=== PATIENT | female | born 1980 | race Two or more races ===

== ENCOUNTER 2017-01-28 21:22 | Emergency (ER) | payer OTHER ==
[~2017-01-28] VITALS: Ht 157.5 cm; Wt 95.7 kg
[2017-01-28 21:45] VITALS: BP 147/76
[2017-01-28 21:56] LABS: BILIRUBIN,URINE NEGATIVE (NEG); GLUCOSE,URINE NEGATIVE (NEG); NITRITE,URINE NEGATIVE (NEG); PH,URINE 5.5; PROTEIN,URINE NEGATIVE (NEG-TRACE); UROBILINOGEN,URINE 0.2 mg/dL (0.2 mg/dL)
[2017-01-28 22:06] LABS: BACTERIA,URINE 0 /HPF (0-FEW); RBC,URINE OCC /HPF (0-2); SQUAMOUS EPITHELIAL CELL,UR MOD /LPF; WBC,URINE OCC /HPF (0-4)
--- NOTE | 2017-01-28 22:17 | PHYS DOC ---
Past Medical History Past Medical History: No Pertinent History Past Surgical History: No Surgical History Alcohol Use: None Drug Use: Methamphetamine Social History Narrative: PT REPORTS BEING CLEAN FOR 2 YEARS Adult General Chief Complaint Chief Complaint: VAGINAL PROBLEM HPI HPI Patient is a 36 year old female presents to the emergency department stating that she's had a few days of itching and irritation around the vaginal area. She denies any vaginal discharge. She denies any urinary frequency urgency or pain with urination. Patient does states that she is 11 weeks . Review of Systems Review of Systems Constitutional: Denies fever or chills [] Eyes: Denies change in visual acuity, redness, or eye pain [] HENT: Denies nasal congestion or sore throat [] Respiratory: Denies cough or shortness of breath [] Cardiovascular: No additional information not addressed in HPI [] GI: Denies abdominal pain, nausea, vomiting, bloody stools or diarrhea [] : Denies dysuria or hematuria. Complaint of itching and irritation of the vaginal area. Musculoskeletal: Denies back pain or joint pain [] Integument: Denies rash or skin lesions [] Neurologic: Denies headache, focal weakness or sensory changes [] Endocrine: Denies polyuria or polydipsia [] Allergies Allergies Allergies Coded Allergies Type Severity Reaction Last Updated Verified No Known Drug Allergies 01/28/17 No Physical Exam Physical Exam Constitutional: Well developed, well nourished, no acute distress, non-toxic appearance. [] HENT: Normocephalic, atraumatic, bilateral external ears normal, oropharynx moist, no oral exudates, nose normal. [] Eyes: PERRLA, EOMI, conjunctiva normal, no discharge. [] Neck: Normal range of motion, no tenderness, supple, no stridor. [] Cardiovascular: [place] warm and dry Lungs & Thorax: No respiratory distress Skin: Warm, dry, no erythema, no rash. Skin in the perineal area appears to be red with tenderness and raised areas noted. No pustulous no drainage or discharge noted. Back: No tenderness Extremities: No tenderness, no cyanosis, no clubbing, ROM intact, no edema. [] Neurologic: Alert and oriented X 3, normal motor function, normal sensory function, no focal deficits noted. [] Psychologic: Affect normal, judgement normal, mood normal. [ Current Patient Data Vital Signs Vital Signs Date Time Temp Pulse Resp B/P (MAP) Pulse Ox O2 Delivery O2 Flow Rate FiO2 01/28/17 21:45 98.2 72 16 97 Room Air 98.2 Lab Values Laboratory Tests Test 01/28/17 21:01 01/28/17 21:35 POC Urine HCG, Qualitative Hcg positive (Negative) Urine Collection Type Unknown Urine Color Yellow Urine Clarity Clear Urine pH 5.5 Urine Specific [place] >=1.030 Urine Protein Negative mg/dL (NEG-TRACE) Urine Glucose (UA) Negative mg/dL (NEG) Urine Ketones (Stick) Negative mg/dL (NEG) Urine Blood Negative (NEG) Urine Nitrite Negative (NEG) Urine Bilirubin Negative (NEG) Urine Urobilinogen Dipstick 0.2 mg/dL (0.2 mg/dL) Urine Leukocyte Esterase Negative (NEG) Urine RBC Occ /HPF (0-2) Urine WBC Occ /HPF (0-4) Urine Squamous Epithelial Cells Mod /LPF Urine Bacteria 0 /HPF (0-FEW) Urine Mucus Marked /LPF EKG EKG [] Radiology/Procedures Radiology/Procedures [] Course & Med Decision Making Course & Med Decision Making Pertinent Labs and Imaging studies reviewed. (See chart for details) Urinalysis was negative for a UTI. Patient will be treated for a yeast infection will be given one dose of Diflucan here in the emergency department. Patient will be discharged home in stable condition with recommendations to keep the perineal area clean and dry. Patient was also instructed to follow-up the primary care physician in the next 3-5 days. Return to the emergency department signs and symptoms of been provided. Patient agrees with discharge instructions treatment regimens and follow-up recommendations. [] Dragon Disclaimer Dragon Disclaimer This electronic medical record was generated, in whole or in part, using a voice recognition dictation system. Departure Departure Impression: Primary Impression: Luana infection Disposition: HOME, SELF-CARE Condition: STABLE Referrals: NO PCP (PCP) Patient Instructions: Yeast Infection of the Skin, [id number] Additional Instructions: You have been provided with Diflucan here in the emergency department for a yeast infection. Keep the perineal area clean and dry. Follow-up with your [facility] in the next 3-5 days. Return back to emergency department sent symptoms become worse. JOHN PAUL [employer] INFORMATION CLERK Jan 28, 2017 22:17
[2017-01-28] MEDS ORDERED: FLUCONAZOLE 100 MG TABLET. PO ONE (23:00)
== END 2017-01-28 22:28 | disposition home or self-care (01) ==
LOC: ER 21:22
DX: O98.811 Other maternal infectious and parasitic diseases complicating pregnancy, first trimester (principal); B37.9 Candidiasis, unspecified; O99.321 Drug use complicating pregnancy, first trimester; F15.10 Other stimulant abuse, uncomplicated; Z3A.11 11 weeks gestation of pregnancy
CPT/HCPCS: 81001; 81025; 99283

== ENCOUNTER 2017-08-23 12:56 | Emergency (ER) | payer OTHER | END 2017-08-23 13:43 | disposition home or self-care (01) | LOC: ER 12:56 | DX: K64.4 Residual hemorrhoidal skin tags (principal); F15.10 Other stimulant abuse, uncomplicated | CPT/HCPCS: 99283 ==

== ENCOUNTER 2017-09-04 08:06 | Day surgery (SDC) | payer OTHER ==
[~2017-09-04 08:06] MED LIST: HYDROmorphone 2 MG/ML VIAL IV; LIDOCAINE 1% PF 2 ML VIAL. ID; MORPHINE SULFATE 2 MG/ML DISP.SYRIN. IV; ONDANSETRON PF 4 MG/2 ML VIAL. IV; PROCHLORPERAZINE 10 MG/2 ML VIAL. IV; fentaNYL PF VIAL 100 MCG/2 ML VIAL IV
[2017-09-04] MEDS: IV RINGERS,LACTATED 1000ML 1,000 ML IV ×2 (08:43)
[2017-09-04 08:44] LABS: NEG OBC UR NEG; POS OBC UR POS; U PREG PATIENT NEGATIVE (NEG)
[2017-09-04] MEDS ORDERED: LIDOCAINE 2% PF Vial for OR 5 ML VIAL. ×2 (09:23)
[2017-09-04] MEDS ORDERED: DEXAMETHASONE SOD PHOS 20 MG/5 ML VIAL. ×2 (09:23)
[2017-09-04] MEDS ORDERED: PROPOFOL 20 ML IV ×2 (09:23)
[2017-09-04] MEDS ORDERED: ONDANSETRON PF 4 MG/2 ML VIAL. ×2 (09:23)
[2017-09-04] MEDS ORDERED: ROCURONIUM 50 MG/5 ML VIAL. ×2 (09:23)
[2017-09-04] MEDS ORDERED: MIDAZOLAM HCL/PF 2 MG/2 ML VIAL. ×2 (09:24)
[2017-09-04] MEDS ORDERED: fentaNYL PF VIAL 100 MCG/2 ML VIAL ×4 (09:24→09:48)
[2017-09-04] MEDS: CITRIC ACID/SODIUM CITRATE 30 ML SOLUTION. PO ×2 (09:26)
[2017-09-04] MEDS: METOCLOPRAMIDE HCL 10 MG/2 ML VIAL. IV ×2 (09:27)
[2017-09-04] MEDS: BUPIVACAINE-EPI 0.25%-1:200000 50 ML VIAL. ×2 (11:21)
[2017-09-04] MEDS ORDERED: GLYCOPYRROLATE 1 MG/5 ML VIAL. ×2 (11:25)
[2017-09-04] MEDS ORDERED: BACITRACIN/POLYMYXIN B OPHTH OINTMENT 3.5GM TUBE. ×2 (11:25)
[2017-09-04] MEDS ORDERED: NEOSTIGMINE METHYLSULFATE 5 MG/5 ML SYRINGE. ×2 (11:25)
[2017-09-04] MEDS ORDERED: BACITRACIN TOPICAL OINT 14GM TUBE. TP ×2 (11:26)
[2017-09-04] MEDS ORDERED: SEVOFLURANE 31 TO 60 MINUTES. IH ×2 (11:27)
[2017-09-04] MEDS: BACITRACIN TOPICAL OINT 14GM TUBE. TP ×2 (11:27)
[2017-09-04] MEDS ORDERED: KETOROLAC 30 MG/ML INJ FOR OR. INJ ×2 (11:37)
[2017-09-04] MEDS ORDERED: oxyCODONE/APAP 5/325 1 TAB TABLET PO ×2 (12:15)
[2017-09-04] MEDS: oxyCODONE/APAP 5/325 1 TAB TABLET PO ×2 (12:30)
== END 2017-09-04 13:05 | disposition home or self-care (01) ==
LOC: SURG 08:06
DX: K64.8 Other hemorrhoids (principal); E66.9 Obesity, unspecified; Z68.38 Body mass index [BMI] 38.0-38.9, adult; F41.9 Anxiety disorder, unspecified; F32.9 Major depressive disorder, single episode, unspecified; F17.200 Nicotine dependence, unspecified, uncomplicated; Z98.51 Tubal ligation status
CPT/HCPCS: 46260; 81025; 88304; A4215; J0690; J1100; J1885; J2250; J2405; J2704; J2710; J2765; J3010; J3490; J7120

== ENCOUNTER 2019-03-10 00:55 | Inpatient (IN) | payer MEDICAID, OTHER ==
[2019-03-10] VITALS (11 sets, daily range): BP systolic 106–149; BP diastolic 68–95
[~2019-03-10] VITALS: Ht 144.8 cm; Wt 94.3 kg
[~2019-03-10 00:55] MED LIST changes: +HYDR-3164 PO; -HYDROmorphone 2 MG/ML VIAL IV; -LIDOCAINE 1% PF 2 ML VIAL. ID; -MORPHINE SULFATE 2 MG/ML DISP.SYRIN. IV; -ONDANSETRON PF 4 MG/2 ML VIAL. IV; -PROCHLORPERAZINE 10 MG/2 ML VIAL. IV; -fentaNYL PF VIAL 100 MCG/2 ML VIAL IV
[2019-03-10 02:22] LABS: BILIRUBIN,URINE NEGATIVE (NEG); CLARITY,URINE CLEAR; COLOR,URINE YELLOW; NITRITE,URINE NEGATIVE (NEG); PROTEIN,URINE NEGATIVE (NEG-TRACE); UROBILINOGEN,URINE 0.2 mg/dL (0.2 mg/dL)
[2019-03-10 02:39] LABS: BACTERIA,URINE 0 /HPF (0-FEW); RBC,URINE 0 /HPF (0-2); SQUAMOUS EPITHELIAL CELL,UR MOD /LPF
[2019-03-10] MEDS ORDERED: IV NORMAL SALINE 1000ML BAG 1,000 ML IV ONE ×2 (04:30→06:00)
[2019-03-10 04:33] LABS: BASO % 0 % (0-3); EOS # 0.1 x10^3/uL (0.0-0.7); EOS % 1 % (0-3); HEMOGLOBIN 11.3 g/dL (12.0-15.5); LYMPH # 1.6 x10^3/uL (1.0-4.8); LYMPH % 12 % (24-48); MEAN CORPUSCULAR HEMOGLOBIN 29 pg (25-35); MEAN CORPUSCULAR HGB CONC 33 g/dL (31-37); MEAN CORPUSCULAR VOLUME 86 fL (79-100); MONO # 0.5 x10^3/uL (0.0-1.1); MONO % 4 % (0-9); NEUT # 10.5 x10^3/uL (1.8-7.7); NEUT % 82 % (31-73); PLATELET COUNT 226 x10^3/uL (140-400); RED BLOOD COUNT 3.97 x10^6/uL (3.50-5.40); RED CELL DISTRIBUTION WIDTH 13.8 % (11.5-14.5); WHITE BLOOD COUNT 12.7 x10^3/uL (4.0-11.0)
[2019-03-10 04:53] LABS: CALCIUM 8.9 mg/dL (8.5-10.1); CREATININE 0.6 mg/dL (0.6-1.0); GFR 113.1; POTASSIUM 4.2 mmol/L (3.5-5.1)
[2019-03-10 04:57] LABS: ALBUMIN 3.5 g/dL (3.4-5.0); ALBUMIN/GLOBULIN RATIO 0.9 (1.0-1.7); TOTAL BILIRUBIN 0.2 mg/dL (0.2-1.0); TOTAL PROTEIN 7.6 g/dL (6.4-8.2)
[2019-03-10] MEDS ORDERED: AZITHROMYCIN 250 MG TABLET. PO ONE (05:00)
[2019-03-10] MEDS ORDERED: cefTRIAXone IM 250 MG VIAL IM ONE (05:00)
--- NOTE | 2019-03-10 05:20 | RAD ---
INDICATION: Pain in COMPARISON: None. TECHNIQUE: Grayscale and color ultrasound images uterus and adnexa. Transabdominal and transvaginal images obtained. Transvaginal images were necessary at in order to better visualize obscured structures. FINDINGS: Uterus: 96 x 59 x 53 mm. Endometrial Stripe: 20 mm. Right Ovary: 36 x 19 x 17 mm. Left Ovary: 32 x 23 x 20 mm. Masslike structure in the right adnexa Complex fluid is seen. IMPRESSION: 1. Thickened endometrial stripe without intrauterine gestational sac identified. 2. There is a masslike structure within the right adnexa. Although the ultrasound appearance is not specific given the patient's positive test and lack of intrauterine an ectopic is in the differential for this finding. 3. There is some complex fluid identified. This internal complexity could be secondary to debris or blood. 4. Definite flow could not be identified to the right ovary. Vascular flow is seen in the left ovary. Report called to the ER at 5:10 AM on date of exam. Electronically signed by: Ezequiel Acevedo MD (03/10/2019 5:17 AM) [facility]
--- NOTE | 2019-03-10 05:24 | PHYS DOC ---
Past Medical History Past Medical History: No Pertinent History Past Surgical History: No Surgical History Alcohol Use: Occasionally Drug Use: Methamphetamine Adult General Chief Complaint Chief Complaint: VAGINAL BLEEDING HPI HPI Patient is a 38 year old [f__sex] who presents with [] Review of Systems Review of Systems Constitutional: Denies fever or chills [] Eyes: Denies change in visual acuity, redness, or eye pain [] HENT: Denies nasal congestion or sore throat [] Respiratory: Denies cough or shortness of breath [] Cardiovascular: No additional information not addressed in HPI [] GI: Denies abdominal pain, nausea, vomiting, bloody stools or diarrhea [] : Denies dysuria or hematuria [] Musculoskeletal: Denies back pain or joint pain [] Integument: Denies rash or skin lesions [] Neurologic: Denies headache, focal weakness or sensory changes [] Endocrine: Denies polyuria or polydipsia [] All other systems were reviewed and found to be within normal limits, except as documented in this note. Current Medications Current Medications Current Medications Medications (Trade) Dose Ordered Sig/[place] Start Time Stop Time Status Last Admin Dose Admin Azithromycin (Zithromax) 1,000 mg 1X ONCE 03/10/19 05:00 03/10/19 05:01 DC Ceftriaxone Sodium (Rocephin Im) 250 mg 1X ONCE 03/10/19 05:00 03/10/19 05:01 DC Sodium Chloride 1,000 ml @ 1,000 mls/hr 1X ONCE 03/10/19 04:30 03/10/19 05:29 03/10/19 04:27 1,000 MLS/HR Allergies Allergies Allergies Coded Allergies Type Severity Reaction Last Updated Verified No Known Drug Allergies 09/04/17 No Physical Exam Physical Exam Constitutional: Well developed, well nourished, no acute distress, non-toxic appearance. [] HENT: Normocephalic, atraumatic, bilateral external ears normal, oropharynx moist, no oral exudates, nose normal. [] Eyes: PERRLA, EOMI, conjunctiva normal, no discharge. [] Neck: Normal range of motion, no tenderness, supple, no stridor. [] Cardiovascular:Heart rate regular rhythm, no murmur [] Lungs & Thorax: Bilateral breath sounds clear to auscultation [] Abdomen: Bowel sounds normal, soft, no tenderness, no masses, no pulsatile masses. [] Skin: Warm, dry, no erythema, no rash. [] Back: No tenderness, no CVA tenderness. [] Extremities: No tenderness, no cyanosis, no clubbing, ROM intact, no edema. [] Neurologic: Alert and oriented X 3, normal motor function, normal sensory function, no focal deficits noted. [] Psychologic: Affect normal, judgement normal, mood normal. [] Current Patient Data Vital Signs Vital Signs Date Time Temp Pulse Resp B/P (MAP) Pulse Ox O2 Delivery O2 Flow Rate FiO2 03/10/19 01:20 96.3 79 16 140/80 (100) 100 Room Air 96.3 Lab Values Laboratory Tests Test 03/10/19 02:10 03/10/19 02:15 03/10/19 04:20 Urine Collection Type Unknown Urine Color Yellow Urine Clarity Clear Urine pH 6.0 Urine Specific [place] 1.025 Urine Protein Negative mg/dL (NEG-TRACE) Urine Glucose (UA) Negative mg/dL (NEG) Urine Ketones (Stick) Negative mg/dL (NEG) Urine Blood Negative (NEG) Urine Nitrite Negative (NEG) Urine Bilirubin Negative (NEG) Urine Urobilinogen Dipstick 0.2 mg/dL (0.2 mg/dL) Urine Leukocyte Esterase Negative (NEG) Urine RBC 0 /HPF (0-2) Urine WBC 1-4 /HPF (0-4) Urine Squamous Epithelial Cells Mod /LPF Urine Bacteria 0 /HPF (0-FEW) Urine Mucus Mod /LPF POC Urine HCG, Qualitative Hcg positive (Negative) White Blood Count 12.7 x10^3/uL (4.0-11.0) H Red Blood Count 3.97 x10^6/uL (3.50-5.40) Hemoglobin 11.3 g/dL (12.0-15.5) L Hematocrit 34.0 % (36.0-47.0) L Mean Corpuscular Volume 86 fL (79-100) Mean Corpuscular Hemoglobin 29 pg (25-35) Mean Corpuscular Hemoglobin Concent 33 g/dL (31-37) Red Cell Distribution Width 13.8 % (11.5-14.5) Platelet Count 226 x10^3/uL (140-400) Neutrophils (%) (Auto) 82 % (31-73) H Lymphocytes (%) (Auto) 12 % (24-48) L Monocytes (%) (Auto) 4 % (0-9) Eosinophils (%) (Auto) 1 % (0-3) Basophils (%) (Auto) 0 % (0-3) Neutrophils # (Auto) 10.5 x10^3/uL (1.8-7.7) H Lymphocytes # (Auto) 1.6 x10^3/uL (1.0-4.8) Monocytes # (Auto) 0.5 x10^3/uL (0.0-1.1) Eosinophils # (Auto) 0.1 x10^3/uL (0.0-0.7) Basophils # (Auto) 0.0 x10^3/uL (0.0-0.2) Maternal Serum HCG Beta Subunit 23680 mIU/mL (0-5) H Sodium Level 139 mmol/L (136-145) Potassium Level 4.2 mmol/L (3.5-5.1) Chloride Level 104 mmol/L (98-107) Carbon Dioxide Level 23 mmol/L (21-32) Anion Gap 12 (6-14) Blood Urea Nitrogen 12 mg/dL (7-20) Creatinine 0.6 mg/dL (0.6-1.0) Estimated GFR (Cockcroft-Gault) 113.1 BUN/Creatinine Ratio 20 (6-20) Glucose Level 125 mg/dL (70-99) H Calcium Level 8.9 mg/dL (8.5-10.1) Magnesium Level 2.0 mg/dL (1.8-2.4) Total Bilirubin 0.2 mg/dL (0.2-1.0) Aspartate Amino Transferase (AST) 13 U/L (15-37) L Alanine Aminotransferase (ALT) 26 U/L (14-59) Alkaline Phosphatase 90 U/L (46-116) Total Protein 7.6 g/dL (6.4-8.2) Albumin 3.5 g/dL (3.4-5.0) Albumin/Globulin Ratio 0.9 (1.0-1.7) L Lipase 90 U/L (73-393) Laboratory Tests 03/10/19 04:20 Laboratory Tests 03/10/19 04:20 Microbiology 03/10/19 Wet Prep - Final, Complete EKG EKG [] Radiology/Procedures Radiology/Procedures [] Course & Med Decision Making Course & Med Decision Making Pertinent Labs and Imaging studies reviewed. (See chart for details) [] Dragon Disclaimer Dragon Disclaimer This electronic medical record was generated, in whole or in part, using a voice recognition dictation system. Departure Departure Impression: Primary Impression: Ectopic Additional Impression: Luana infection Disposition: ADMITTED INPATIENT Condition: GUARDED Referrals: NO PCP (PCP) Critical Care Time Critical care time was 30 minutes which includes time at bedside, spent in discussion of patient's care with specialists and/or family members, with interpretation of laboratory and/or radiological studies and is exclusive of procedures. Problem Qualifiers Primary Impression: Ectopic Location of ectopic : ovarian Intrauterine status: without intrauterine Laterality: right Qualified Codes: O00.201 - Right ovarian without intrauterine CANDI GRIMES DO Mar 10, 2019 05:24
[2019-03-10] MEDS ORDERED: ONDANSETRON PF 4 MG/2 ML VIAL. IV PRN ×2 (05:30→07:45)
--- NOTE | 2019-03-10 06:25 | NUR ---
Patient to room 303 per W/C. Patient c/O pain that started last night in her lower abdomen. Orders reviewed and POC discussed with patient. Oriented to room.
[2019-03-10] MEDS: fentaNYL PF VIAL 100 MCG/2 ML VIAL IV PRN ×4 (06:52→13:33)
[2019-03-10] MEDS ORDERED: fentaNYL PF VIAL 100 MCG/2 ML VIAL IM ONE (07:30)
[2019-03-10] MEDS ORDERED: IV RINGERS,LACTATED 1000ML 1,000 ML IV SCH (07:40)
[2019-03-10] MEDS ORDERED: MORPHINE SULFATE 2 MG/ML VIAL. IV PRN (07:45)
[2019-03-10] MEDS ORDERED: LIDOCAINE 1% PF 2 ML VIAL. ID PRN (07:45)
[2019-03-10] MEDS ORDERED: PROCHLORPERAZINE 10 MG/2 ML VIAL. IV PRN (07:45)
[2019-03-10] MEDS ORDERED: fentaNYL PF VIAL 100 MCG/2 ML VIAL IV PRN ×2 (07:45)
[2019-03-10] MEDS ORDERED: HYDROmorphone 2 MG/ML VIAL IV PRN (07:45)
[2019-03-10] MEDS ORDERED: fentaNYL PF VIAL 100 MCG/2 ML VIAL IV ONE (08:00)
[2019-03-10] MEDS ORDERED: MIDAZOLAM HCL/PF 2 MG/2 ML VIAL. ONE (09:31)
[2019-03-10] MEDS ORDERED: PROPOFOL 20 ML IV ONE (09:31)
[2019-03-10] MEDS ORDERED: ROCURONIUM 50 MG/5 ML VIAL. ONE (09:31)
[2019-03-10] MEDS ORDERED: fentaNYL PF VIAL 100 MCG/2 ML VIAL ONE ×3 (09:31→11:05)
[2019-03-10] MEDS ORDERED: SUCCINYLCHOLINE 200 MG/10 ML VIAL. ONE (09:31)
[2019-03-10] MEDS ORDERED: LIDOCAINE 2% PF 5 ML VIAL. ONE (09:31)
[2019-03-10] MEDS ORDERED: ONDANSETRON PF 4 MG/2 ML VIAL. ONE (10:08)
[2019-03-10] MEDS ORDERED: DEXAMETHASONE SOD PHOS 4 MG/ML VIAL ONE (10:08)
[2019-03-10] MEDS ORDERED: FAMOTIDINE 20 MG/2 ML VIAL ONE (10:08)
[2019-03-10] MEDS ORDERED: ceFAZolin SODIUM 1 GM VIAL ONE (10:18)
[2019-03-10] MEDS ORDERED: KETOROLAC 30 MG/ML INJ FOR OR. INJ ONE (10:39)
[2019-03-10] MEDS ORDERED: NEOSTIGMINE METHYLSULFATE 5 MG/5 ML SYRINGE. ONE (10:39)
[2019-03-10] MEDS ORDERED: GLYCOPYRROLATE 1 MG/5 ML VIAL. ONE (10:39)
[2019-03-10] MEDS ORDERED: SEVOFLURANE 31 TO 60 MINUTES. IH ONE (10:42)
--- NOTE | 2019-03-10 11:09 | PDOC ---
GENERAL General: 38 yrs old lady admitted with Rt LQ Pain Patient came thru ER for Pelvic Pain with Positive Test Pt has had BTL before. LMP 01/25/19 missed February Period. Admitted for Ectopic . VITAL SIGNS Vital Signs/I&O: Vital Signs Date Time Temp Pulse Resp B/P (MAP) Pulse Ox O2 Delivery O2 Flow Rate FiO2 03/10/19 09:31 98 86 20 121/71 99 Room Air 98.0 I & O 03/09/19 03/09/19 03/10/19 15:00 23:00 07:00 Output Total 300 ml Balance -300 ml ALLERGIES Allergies: Allergies Coded Allergies Type Severity Reaction Last Updated Verified No Known Drug Allergies 09/04/17 No MEDS Medications: Current Medications Medications (Trade) Dose Ordered Sig/[place] Route PRN Reason Start Time Stop Time Status Last Admin Dose Admin Sodium Chloride 1,000 ml @ 1,000 mls/hr 1X ONCE IV 03/10/19 04:30 03/10/19 05:29 DC 03/10/19 04:27 Ceftriaxone Sodium (Rocephin Im) 250 mg 1X ONCE IM 03/10/19 05:00 03/10/19 05:01 DC 03/10/19 05:30 Azithromycin (Zithromax) 1,000 mg 1X ONCE PO 03/10/19 05:00 03/10/19 05:01 DC 03/10/19 05:30 Ondansetron HCl (Zofran) 4 mg PRN Q8HRS PRN IV NAUSEA/VOMITING 1ST CHOICE 03/10/19 05:30 03/11/19 05:29 03/10/19 06:52 Fentanyl Citrate (Fentanyl 2ml Vial) 50 mcg PRN Q2HRS PRN IV SEVERE PAIN 7-10 03/10/19 05:30 03/10/19 06:52 Sodium Chloride 1,000 ml @ 100 mls/hr 1X ONCE IV 03/10/19 06:00 03/10/19 15:59 03/10/19 06:52 Fentanyl Citrate (Fentanyl 2ml Vial) 50 mcg 1X ONCE IV 03/10/19 08:00 03/10/19 08:01 DC 03/10/19 08:29 LAB Lab: Laboratory Tests Test 03/10/19 02:10 03/10/19 02:15 03/10/19 04:20 Urine Collection Type Unknown Urine Color Yellow Urine Clarity Clear Urine pH 6.0 Urine Specific [place] 1.025 Urine Protein Negative mg/dL (NEG-TRACE) Urine Glucose (UA) Negative mg/dL (NEG) Urine Ketones (Stick) Negative mg/dL (NEG) Urine Blood Negative (NEG) Urine Nitrite Negative (NEG) Urine Bilirubin Negative (NEG) Urine Urobilinogen Dipstick 0.2 mg/dL (0.2 mg/dL) Urine Leukocyte Esterase Negative (NEG) Urine RBC 0 /HPF (0-2) Urine WBC 1-4 /HPF (0-4) Urine Squamous Epithelial Cells Mod /LPF Urine Bacteria 0 /HPF (0-FEW) Urine Mucus Mod /LPF POC Urine HCG, Qualitative Hcg positive (Negative) White Blood Count 12.7 x10^3/uL (4.0-11.0) H Red Blood Count 3.97 x10^6/uL (3.50-5.40) Hemoglobin 11.3 g/dL (12.0-15.5) L Hematocrit 34.0 % (36.0-47.0) L Mean Corpuscular Volume 86 fL (79-100) Mean Corpuscular Hemoglobin 29 pg (25-35) Mean Corpuscular Hemoglobin Concent 33 g/dL (31-37) Red Cell Distribution Width 13.8 % (11.5-14.5) Platelet Count 226 x10^3/uL (140-400) Neutrophils (%) (Auto) 82 % (31-73) H Lymphocytes (%) (Auto) 12 % (24-48) L Monocytes (%) (Auto) 4 % (0-9) Eosinophils (%) (Auto) 1 % (0-3) Basophils (%) (Auto) 0 % (0-3) Neutrophils # (Auto) 10.5 x10^3/uL (1.8-7.7) H Lymphocytes # (Auto) 1.6 x10^3/uL (1.0-4.8) Monocytes # (Auto) 0.5 x10^3/uL (0.0-1.1) Eosinophils # (Auto) 0.1 x10^3/uL (0.0-0.7) Basophils # (Auto) 0.0 x10^3/uL (0.0-0.2) Maternal Serum HCG Beta Subunit 30711 mIU/mL (0-5) H Sodium Level 139 mmol/L (136-145) Potassium Level 4.2 mmol/L (3.5-5.1) Chloride Level 104 mmol/L (98-107) Carbon Dioxide Level 23 mmol/L (21-32) Anion Gap 12 (6-14) Blood Urea Nitrogen 12 mg/dL (7-20) Creatinine 0.6 mg/dL (0.6-1.0) Estimated GFR (Cockcroft-Gault) 113.1 BUN/Creatinine Ratio 20 (6-20) Glucose Level 125 mg/dL (70-99) H Calcium Level 8.9 mg/dL (8.5-10.1) Magnesium Level 2.0 mg/dL (1.8-2.4) Total Bilirubin 0.2 mg/dL (0.2-1.0) Aspartate Amino Transferase (AST) 13 U/L (15-37) L Alanine Aminotransferase (ALT) 26 U/L (14-59) Alkaline Phosphatase 90 U/L (46-116) Total Protein 7.6 g/dL (6.4-8.2) Albumin 3.5 g/dL (3.4-5.0) Albumin/Globulin Ratio 0.9 (1.0-1.7) L Lipase 90 U/L (73-393) Laboratory Tests 03/10/19 04:20 Laboratory Tests 03/10/19 04:20 ASSESSMENT & PLAN A&P Under GA Laparotomy Right Side Salpingo Oophorectomy done. Pt had Rupture Rt Side Tubal with Blood clots in Pelvis. EBL 200cc. ELSI CORDOVA MD Mar 10, 2019 11:09
--- NOTE | 2019-03-10 11:24 | HP ---
ADMIT DATE: CHIEF COMPLAINT AND HISTORY OF PRESENT ILLNESS: A 38-year-old white female who came through the Emergency Room because of right lower quadrant pain. She is 7, para 7, having had a tubal ligation before and comes in with severe right lower quadrant pain. She was seen in the ER and she does have a positive test, had a sonogram which shows right adnexal mass and admitted to the hospital for possible ectopic at this time. OBJECTIVE: VITAL SIGNS: Stable. GENERAL: The patient in lot of pain. ABDOMEN: Soft, tenderness in the right lower quadrant and not much vaginal bleeding. EXTREMITIES: No edema of feet. PELVIC: Bimanual exam shows enlarged uterus and tenderness in both adnexal area and more so on the right side. DIAGNOSIS: Right lower quadrant pain, possible tubal . ELSI CORDOVA MD DR: KYLE/randy JOB#: [id number] / [id number]
--- NOTE | 2019-03-10 12:07 | OP ---
DATE OF SURGERY: PREOPERATIVE DIAGNOSIS: Severe right lower quadrant pain, possible tubal . POSTOPERATIVE DIAGNOSIS: Severe right lower quadrant pain, possible tubal with ruptured tubal on the right side. OPERATION PERFORMED: Laparotomy, evacuation of the blood clots from the pelvis and right side salpingo-oophorectomy. DESCRIPTION OF PROCEDURE: The patient was taken to the operating room under general anesthesia. She was placed in a dorsal supine position. Win catheter introduced into bladder for continuous bladder drainage. She did receive antibiotics prior to surgery and the lower abdomen was prepped and draped in the usual manner. Pfannenstiel incision was made, abdomen opened in layers and visualization of the pelvis revealed the pelvis filled with all blood clots and bleeding and all the clots were removed and visualization of the right side fallopian tube reveals enlarged tube with the tubal ruptured and also enlarged ovary with ovarian cyst and the infundibulopelvic ligament was ligated with [place] clamps and sutured with 0 chromic catgut sutures and the right side tube along with the ovary is removed and subjected for pathological examination and all the clots were removed in the pelvic cavity and the left tube and ovary appears normal. The abdomen was rinsed with about 300 mL of normal saline and then abdomen closed in layers using continuous 0 chromic catgut sutures for the peritoneum, the muscle, the fascia, 3-0 plain continuous sutures applied for subcutaneous tissue, 3-0 Vicryl subcutaneous sutures were placed, a pressure dressing was given. The patient was sent to the recovery room in good condition. No complications encountered at time of the procedure. Estimated blood loss about 200 mL. Postoperative condition is stable. ELSI CORDOVA MD DR: KYLE/randy JOB#: [id number] / [id number]
[2019-03-10] MEDS ORDERED: traMADol 50 MG TABLET PO PRN (15:00)
[2019-03-10] MEDS ORDERED: DOCUSATE SODIUM 100 MG CAPSULE. PO PRN (16:30)
[2019-03-10] MEDS: oxyCODONE/APAP 5/325 1 TAB TABLET PO PRN ×3 (17:47→22:59)
[2019-03-11 06:39] LABS: HEMATOCRIT 24.8 % (36.0-47.0); HEMOGLOBIN 8.5 g/dL (12.0-15.5); RED BLOOD COUNT 2.88 x10^6/uL (3.50-5.40); RED CELL DISTRIBUTION WIDTH 14.3 % (11.5-14.5); WHITE BLOOD COUNT 8.8 x10^3/uL (4.0-11.0)
[2019-03-11 06:45] VITALS: BP 98/53
--- NOTE | 2019-03-11 08:04 | PDOC ---
GENERAL General: Vital signs stable No problems VITAL SIGNS Vital Signs/I&O: Vital Signs Date Time Temp Pulse Resp B/P (MAP) Pulse Ox O2 Delivery O2 Flow Rate FiO2 03/11/19 06:45 100.0 83 18 98/53 (68) 97 Room Air 100.0 03/10/19 11:29 10.0 I & O 03/10/19 03/10/19 03/11/19 15:01 23:01 07:01 Intake Total 1110 ml 1800 ml Output Total 925 ml 700 ml Balance 185 ml 1100 ml ALLERGIES Allergies: Allergies Coded Allergies Type Severity Reaction Last Updated Verified No Known Drug Allergies 09/04/17 No MEDS Medications: Current Medications Medications (Trade) Dose Ordered Sig/[place] Route PRN Reason Start Time Stop Time Status Last Admin Dose Admin Tramadol HCl (Ultram) 50 mg PRN Q4HRS PRN PO MILD PAIN 1-3 03/10/19 15:00 03/10/19 16:02 Docusate Sodium (Colace) 100 mg PRN BID PRN PO CONSTIPATION 03/10/19 16:30 03/10/19 22:59 Oxycodone/ Acetaminophen (Percocet 5/325) 1 tab PRN Q4HRS PRN PO MODERATE PAIN 03/10/19 16:30 03/10/19 18:37 Oxycodone/ Acetaminophen (Percocet 5/325) 2 tab PRN Q4HRS PRN PO SEVERE PAIN 03/10/19 16:30 03/10/19 22:59 LAB Lab: Laboratory Tests Test 03/11/19 06:15 White Blood Count 8.8 x10^3/uL (4.0-11.0) Red Blood Count 2.88 x10^6/uL (3.50-5.40) L Hemoglobin 8.5 g/dL (12.0-15.5) L Hematocrit 24.8 % (36.0-47.0) L Mean Corpuscular Volume 86 fL (79-100) Mean Corpuscular Hemoglobin 29 pg (25-35) Mean Corpuscular Hemoglobin Concent 34 g/dL (31-37) Red Cell Distribution Width 14.3 % (11.5-14.5) Platelet Count 187 x10^3/uL (140-400) Laboratory Tests 03/11/19 06:15 ASSESSMENT & PLAN A&P Patient can go home today Will see her in 2 weeks.in office. ELSI CORDOVA MD Mar 11, 2019 08:04
[2019-03-11 08:15] VITALS: BP 98/53
[2019-03-11] MEDS: oxyCODONE/APAP 5/325 1 TAB TABLET PO PRN (08:35)
--- NOTE | 2019-03-11 17:07 | PATHOLOGY ---
[facility] Accession Number: [id number] . 01 Material submitted: . PART A: fallopian tube - RIGHT FALLOPIAN TUBE AND RIGHT OVARY. Modifiers: right PART B: uterus - ECTOPIC TISSUE/ CLOTS . 01 Clinical history: . Ruptured ectopic . 02 Diagnosis: A. Fallopian tube and ovary, right salpingo-oophorectomy: - Ectopic tubal , ruptured, with early organizing serosal hemorrhage and focal presence of hemosiderin laden macrophages. - Serosal adhesions of fallopian tube and focal ovarian capsular adhesions. - Cystic follicles of ovary, multiple. . B. Pelvic contents: - Segments of blood clot containing immature chorionic villi consistent with ruptured tubal . (JPM:[facility] 03/11/2019) QTP/03/11/2019 . 02 Electronically signed: . Toan Perales MD, Pathologist NPI- [id number] . 01 Gross description: . A. The specimen is received in formalin, labeled "Keke Moore, right fallopian tube and ovary". Received is a 28 g adnexal specimen consisting of a fimbriated fallopian tube measuring 5.5 cm in length and ranges in diameter from 0.5 to 1.2 cm attached to a 4.8 x 3.2 x 2.6 cm ovary. The serosal surface of the fallopian tube is pink-vinson and slightly shaggy in appearance with adherent blood coagulum. Sectioning through the fallopian tube reveals a patent to dilated lumen. The ovarian surface is pale vinson in appearance with overlying blood coagulum and a slight amount of adhesions. Sectioning through the ovary reveals multiple cystic structures ranging in size from 0.2 to 0.5 cm filled with clear fluid. The remaining cut surfaces are pale vinson and glistening in appearance with a slight amount of distinct normal ovarian stroma identified. The specimen is submitted representatively in cassettes A1 through A5. . B. The specimen is received in formalin, labeled "Keke Moore, ectopic tissue/clots". Received is a 144 g aggregate of blood coagulum and mixed with a slight amount of pink-vinson soft tissue measuring 15.9 x 15.2 x 5.1 cm in aggregate dimensions. or embryonic tissue is not grossly identified. The soft tissue is submitted entirely in cassettes B1 through B3. (CAA; 03/10/2019) QAC/QAC . 02 Pathologist provided ICD-10: O00.101, N83.01 . 02 CPT . 661428, [id number] Specimen Comment: A courtesy copy of this report has been sent to Specimen Comment: [phone]. Specimen Comment: Report sent to Performed at: 01 [facility] [address] [facility] [address], [place] [id number] MD Micha Higgins MD Phone: [phone] Performed at: 02 [facility] [address] [place], [place] [id number] MD Toan Perales MD Phone: [phone]
[2019-03-11 18:14] LABS: GC PROBE Negative (Negative)
== END 2019-03-11 09:00 | disposition home or self-care (01) | DRG 818 ==
LOC: ER 00:55 → 3 NORTH 05:19
PROVIDERS: ADMIT Obstetrics & Gynecology; ATTEND Obstetrics & Gynecology
PROC: 0UT50ZZ Resection of Right Fallopian Tube, Open Approach (ICD-10-PCS; 2019-03-10)
PROC: 0UT00ZZ Resection of Right Ovary, Open Approach (ICD-10-PCS; 2019-03-10)
PROC: 10D27ZZ Extraction of Products of Conception, Ectopic, Via Natural or Artificial Opening (ICD-10-PCS; principal; 2019-03-10 10:00)
DX: O00.201 Right ovarian pregnancy without intrauterine pregnancy (principal); R71.0 Precipitous drop in hematocrit; B37.9 Candidiasis, unspecified; N83.209 Unspecified ovarian cyst, unspecified side
CPT/HCPCS: 36415; 76801; 76817; 80053; 81001; 81025; 83690; 83735; 84702; 85025; 85027; 86901; 87491; 87591; 88305; 96360; 96372; A7015; J0330; J0690; J0696; J1100; J1885; J2001; J2250; J2405; J2704; J2710; J3010; J3490; J7030; J7120; Q0111; Q0144; 99291-25; G0378

== ENCOUNTER 2019-12-19 15:30 | Emergency (ER) | payer MEDICAID ==
[~2019-12-19] VITALS: Ht 144.8 cm; Wt 105.0 kg
[2019-12-19 16:16] VITALS: BP 125/77
[2019-12-19 17:36] LABS: BILIRUBIN,URINE NEGATIVE (NEG); CLARITY,URINE CLEAR; COLOR,URINE YELLOW; NITRITE,URINE NEGATIVE (NEG); PH,URINE 5.5 (<5.0-8.0); PROTEIN,URINE NEGATIVE (NEG-TRACE)
[2019-12-19 17:41] LABS: BACTERIA,URINE MODERATE /HPF (0-FEW); RBC,URINE OCC /HPF (0-2); SQUAMOUS EPITHELIAL CELL,UR MANY /LPF
--- NOTE | 2019-12-19 17:53 | PHYS DOC ---
Past Medical History Past Medical History: No Pertinent History Past Surgical History: Tubal ligation, Other Additional Past Surgical Histo: tubal Smoking Status: Current Every Day Smoker Alcohol Use: Occasionally Drug Use: Methamphetamine General Adult EDM: Chief Complaint: TEST HPI: HPI: Patient is a 39 year old female came to the ER wanting a test. Patient said she tested herself twice at home but not conclusive. She missed her period this month, denied any pelvic pain, no vaginal bleeding, no nausea or vomiting. Patient said she has 7 children, really does not want to get again. Review of Systems: Review of Systems: Constitutional: Denies fever or chills. [] Eyes: Denies change in visual acuity. [] HENT: Denies nasal congestion or sore throat. [] Respiratory: Denies cough or shortness of breath. [] Cardiovascular: Denies chest pain or edema. [] GI: Denies abdominal pain, nausea, vomiting, bloody stools or diarrhea. [] : Denies dysuria. [] Musculoskeletal: Denies back pain or joint pain. [] Integument: Denies rash. [] Neurologic: Denies headache, focal weakness or sensory changes. [] Endocrine: Denies polyuria or polydipsia. [] Lymphatic: Denies swollen glands. [] Psychiatric: Denies depression or anxiety. [] Heart Score: Risk Factors: Risk Factors: DM, Current or recent (<one month) smoker, HTN, HLP, family history of CAD, obesity. Risk Scores: Score 0 - 3: 2.5% MACE over next 6 weeks - Discharge Home Score 4 - 6: 20.3% MACE over next 6 weeks - Admit for Clinical Observation Score 7 - 10: 72.7% MACE over next 6 weeks - Early Invasive Strategies Allergies: Allergies: Allergies Coded Allergies Type Severity Reaction Last Updated Verified No Known Drug Allergies 09/04/17 No Physical Exam: PE: Constitutional: Well developed, well nourished, no acute distress, non-toxic appearance. [] Cardiovascular:Heart rate regular rhythm, no murmur [] Lungs & Thorax: Bilateral breath sounds clear to auscultation [] Abdomen: Bowel sounds normal, soft, no tenderness, no masses, no pulsatile masses. [] Skin: Warm, dry, no erythema, no rash. [] Back: No tenderness, no CVA tenderness. [] Neurologic: Alert and oriented X 3, normal motor function, normal sensory function, no focal deficits noted. [] Psychologic: Affect normal, judgement normal, mood normal. [] Current Patient Data: Labs: Laboratory Tests Test 12/19/19 15:40 12/19/19 15:46 Urine Collection Type Unknown Urine Color Yellow Urine Clarity Clear Urine pH 5.5 (<5.0-8.0) Urine Specific [place] >=1.030 (1.000-1.030) Urine Protein Negative mg/dL (NEG-TRACE) Urine Glucose (UA) Negative mg/dL (NEG) Urine Ketones (Stick) Negative mg/dL (NEG) Urine Blood Small (NEG) Urine Nitrite Negative (NEG) Urine Bilirubin Negative (NEG) Urine Urobilinogen Dipstick 1.0 mg/dL (0.2 mg/dL) Urine Leukocyte Esterase Negative (NEG) Urine RBC Occ /HPF (0-2) Urine WBC 1-4 /HPF (0-4) Urine Squamous Epithelial Cells Many /LPF Urine Bacteria Moderate /HPF (0-FEW) Urine Mucus Marked /LPF POC Urine HCG, Qualitative Hcg negative (Negative) Vital Signs: Vital Signs Date Time Temp Pulse Resp B/P (MAP) Pulse Ox O2 Delivery O2 Flow Rate FiO2 12/19/19 16:16 97.7 71 16 125/77 (93) 99 Room Air 97.7 EKG: EKG: [] Radiology/Procedures: Radiology/Procedures: [] Course & Med Decision Making: Course & Med Decision Making Pertinent Labs and Imaging studies reviewed. (See chart for details) [] Dragon Disclaimer: Anne-Marie Disclaimer: This electronic medical record was generated, in whole or in part, using a voice recognition dictation system. Departure Departure Impression: Primary Impression: Irregular periods/menstrual cycles Additional Impression: Negative test Disposition: HOME, SELF-CARE Condition: STABLE Referrals: NO PCP (PCP) FOLLOW UP WITH YOUR DESCRIPTIVE CATALOG LIBRARIAN DOCTOR Patient Instructions: Tests ESTRELLA CASAS DO December 19, 2019 17:53
== END 2019-12-19 18:15 | disposition home or self-care (01) ==
LOC: ER 15:30
DX: N92.6 Irregular menstruation, unspecified (principal); Z32.02 Encounter for pregnancy test, result negative; Z98.51 Tubal ligation status; F17.200 Nicotine dependence, unspecified, uncomplicated
CPT/HCPCS: 81001; 81025; 87086; 99283

== ENCOUNTER 2020-02-07 11:00 | Emergency (ER) | payer MEDICAID ==
[~2020-02-07] VITALS: Ht 144.8 cm; Wt 68.1 kg
[2020-02-07 11:37] VITALS: BP 113/69
[2020-02-07] MEDS ORDERED: TRIA15CR TP (12:20)
[2020-02-07] MEDS ORDERED: METH4TAB2 PO (12:20)
[2020-02-07] MEDS ORDERED: methylPREDNISolone SOD SUCC PF 125 MG/2 ML VIAL. IM ONE (12:30)
--- NOTE | 2020-02-07 17:37 | PHYS DOC ---
Past Medical History Past Medical History: No Pertinent History Past Surgical History: Tubal ligation, Other Additional Past Surgical Histo: tubal Smoking Status: Current Every Day Smoker Alcohol Use: Occasionally Drug Use: Methamphetamine General Adult EDM: Chief Complaint: SKIN PROBLEM HPI: HPI: Patient is a 39 year old female who presents with was outside 04 February and was around poison [place]. She states she is had this before in the past. Patient has a to bilateral extremities and lower extremities, back, neck and face. Pat ient bilateral face has 2+ eye swelling and bilateral cheek swelling. Patient denies any vision changes or pain in her eyes or itching of her eyes. She denies pain with movement of her eyes. Patient states the last time she had that she had to have a steroid shot. Patient has been using poison [place] and [place]ac ointment all over her body. Patient has patches of contact dermatitis type blisters that are pink and swollen. No drainage or crusting is seen. Patient denies any itching or throat swelling or respiratory distress. Patient denies shortness of breath, chest pain, vision changes, eye pain, nausea, vomiting, abdominal pain, headache, dizziness, cough. Review of Systems: Review of Systems: Constitutional: Denies fever or chills. [] Eyes: Denies change in visual acuity. Redness, itching and swelling around eye s bilaterally. [] HENT: Denies nasal congestion or sore throat. [] Respiratory: Denies cough or shortness of breath. [] Cardiovascular: Denies chest pain or edema. [] GI: Denies abdominal pain, nausea, vomiting, bloody stools or diarrhea. [] : Denies dysuria. [] Musculoskeletal: Generalized body itching. Denies back pain or joint pain. [] Integument: Generalized facial and body contact dermatitis rash. [] Neurologic: Denies headache, focal weakness or sensory changes. [] Endocrine: Denies polyuria or polydipsia. [] Lymphatic: Denies swollen glands. [] Psychiatric: Denies depression or anxiety. [] Heart Score: Risk Factors: Risk Factors: DM, Current or recent (<one month) smoker, HTN, HLP, family history of CAD, obesity. Risk Scores: Score 0 - 3: 2.5% MACE over next 6 weeks - Discharge Home Score 4 - 6: 20.3% MACE over next 6 weeks - Admit for Clinical Observation Score 7 - 10: 72.7% MACE over next 6 weeks - Early Invasive Strategies Current Medications: Current Medications Medications (Trade) Dose Ordered Sig/[place] Start Time Stop Time Status Last Admin Dose Admin Methylprednisolone Sodium Succinate (SOLU-Medrol 125MG VIAL) 125 mg 1X ONCE 02/07/20 12:30 02/07/20 12:31 DC 02/07/20 12:38 125 MG Allergies: Allergies: Allergies Coded Allergies Type Severity Reaction Last Updated Verified No Known Drug Allergies 09/04/17 No Physical Exam: PE: Constitutional: Well developed, well nourished, no acute distress, non-toxic appearance. [] HENT: Normocephalic, atraumatic, bilateral external ears normal, oropharynx moist, no oral exudates, nose normal. [] Eyes: PERRLA, EOMI, conjunctiva normal, no discharge. [] Neck: Normal range of motion, no tenderness, supple, no stridor. [] Cardiovascular:Heart rate regular rhythm, no murmur [] Lungs & Thorax: Bilateral breath sounds clear to auscultation [] Abdomen: Bowel sounds normal, soft, no tenderness, no masses, no pulsatile masses. [] Skin: Warm, dry, no erythema, facial, generalized body contact dermatitis rash. [] Back: No tenderness, no CVA tenderness. [] Extremities: No tenderness, no cyanosis, no clubbing, ROM intact, no edema. [] Neurologic: Alert and oriented X 3, normal motor function, normal sensory function, no focal deficits noted. [] Psychologic: Affect normal, judgement normal, mood normal. [] Current Patient Data: Vital Signs: Vital Signs Date Time Temp Pulse Resp B/P (MAP) Pulse Ox O2 Delivery O2 Flow Rate FiO2 02/07/20 11:37 98.2 79 18 113/69 (84) 98 Room Air 98.2 EKG: EKG: [] Radiology/Procedures: Radiology/Procedures: [] Course & Med Decision Making: Course & Med Decision Making Pertinent Labs and Imaging studies reviewed. (See chart for details) Alert and oriented. Speaks in full complete sentences. Ambulatory with a steady gait. PERRLA. Sclera white there is no redness. See HPI. Patient is given Solu-Medrol IM. She is sent home with time triamcinolone cream cream and a Medrol Dosepak. [] Anne-Marie Disclaimer: Anne-Marie Disclaimer: This electronic medical record was generated, in whole or in part, using a voice recognition dictation system. Departure Departure Impression: Primary Impression: Poison [place]ac Disposition: 01 HOME, SELF-CARE Condition: STABLE Patient Instructions: Contact Dermatitis Additional Instructions: follow up with primary care physician. Take medication as prescribed and with food. Scripts Triamcinolone Acetonide (TRIAMCINOLONE ACETONIDE 0.5% CREAM) 15 Gm Cream..g. 1 DONA TP BID, #30 GM Prov: JOHN PAUL ROLDAN APRN 02/07/20 Methylprednisolone (MEDROL) 4 Mg Tab.ds.pk 1 PKG PO UD, #1 PKG Prov: JOHN PAUL ROLDAN APRN 02/07/20 Justicifation of Admission Dx: Justifications for Admission: Justification of Admission Dx: N/A JOHN PAUL ROLDAN APRN Feb 07, 2020 17:37
== END 2020-02-07 12:40 | disposition home or self-care (01) ==
LOC: ER 11:00
DX: L23.7 Allergic contact dermatitis due to plants, except food (principal); R50.9 Fever, unspecified; L29.9 Pruritus, unspecified; R60.0 Localized edema; F17.200 Nicotine dependence, unspecified, uncomplicated; F19.90 Other psychoactive substance use, unspecified, uncomplicated; Z98.51 Tubal ligation status; Z98.890 Other specified postprocedural states
CPT/HCPCS: 96372; 99283; J2930